=== PATIENT | female | born 1940 | race Caucasian/White ===

== ENCOUNTER → 2019-05-31 | Outpatient (CLI) | payer OTHER ==
[~2019-05-31] MED LIST: ACYCLOVIR 200200 MG PO; APAP500 PO; B-100 COMPLEX1 EAC1 PO; B12INJ; BETA CAROT10000 UNIT PO; CITRACAL + BON1 EACH PO; CLEARLAX; DICLOFENAC SOD50 MG PO; DICLOFENAC SODI75 M1 PO; FOLIC ACID PO; GABAPENTIN100 MG PO; HYDROCODON-ACE1 EAC7 PO; HYDROCODON-ACE1 EAC8 PO; HYDROCODONE-APA1 TA1 PO; LEVOTHYROXINE0.05 MG PO; LIPITOR 20 MG T20 M1 PO; LORTAB 5 MG/5001 TA1 PO; LORTAB 7.5/5001 TA3 PO; MULTIVITAMINS PO; NEURONTIN 300300 M1 PO; NORCO 7.5-3251 EACH PO; PROLIA60 MG/1 ML SQ; TIZANIDINE HCL 22 M1 PO; VITAMIN D3400 UNI1 PO; VITAMIN E400 UNIT PO; [UNRECOGNIZED DRUG - OTHER] PO
== END ==
LOC: SJCVCIMAG 09:54
DX: I65.23 Occlusion and stenosis of bilateral carotid arteries (principal); M48.00 Spinal stenosis, site unspecified; M19.90 Unspecified osteoarthritis, unspecified site; E78.00 Pure hypercholesterolemia, unspecified; E03.9 Hypothyroidism, unspecified; M81.0 Age-related osteoporosis without current pathological fracture; G89.4 Chronic pain syndrome; Z96.641 Presence of right artificial hip joint; Z90.49 Acquired absence of other specified parts of digestive tract

== ENCOUNTER → 2020-05-29 | Outpatient (CLI) | payer OTHER ==
[~2020-05-29] MED LIST changes: +PERCOCET 10-321 EAC1 PO; +ZPAK PO
== END ==
LOC: SJCVCIMAG 08:39
PROVIDERS: ATTEND Internal Medicine
DX: I65.23 Occlusion and stenosis of bilateral carotid arteries (principal); R94.31 Abnormal electrocardiogram [ECG] [EKG]; R00.1 Bradycardia, unspecified; M48.00 Spinal stenosis, site unspecified; E78.5 Hyperlipidemia, unspecified; M19.90 Unspecified osteoarthritis, unspecified site; E78.00 Pure hypercholesterolemia, unspecified; E03.9 Hypothyroidism, unspecified; M81.0 Age-related osteoporosis without current pathological fracture; G89.4 Chronic pain syndrome; Z96.641 Presence of right artificial hip joint; Z98.890 Other specified postprocedural states; Z88.8 Allergy status to other drugs, medicaments and biological substances; Z79.82 Long term (current) use of aspirin; Z79.899 Other long term (current) drug therapy

== ENCOUNTER → 2021-06-04 | Outpatient (CLI) | payer OTHER | LOC: SJCVCIMAG 09:40 | PROVIDERS: ATTEND Internal Medicine | DX: I65.23 Occlusion and stenosis of bilateral carotid arteries (principal) ==